=== PATIENT | female | born 1950 | race Caucasian/White ===

== ENCOUNTER 2017-10-26 14:27 | Emergency (ER) | payer MEDICARE ==
[2017-10-26] MEDS ORDERED: METHYLPREDNISOLONE PF 125MG/VIAL IVP ONE (15:06)
[2017-10-26] MEDS ORDERED: IPRATROPIUM/ALBUTEROL (0.5MG/3MG) NEB INH ONE (15:06)
--- NOTE | 2017-10-26 15:13 | Emergency Department Record ---
History of Present Illness - General Chief Complaint: Shortness of breath Stated Complaint: COPD EXACERBATION Time Seen by Provider: 10/26/17 14:57 Source: Patient, Family Mode of Arrival: Ambulatory Limitations: No limitations - History of Present Illness Initial Comments: 67 yo female presents with shortness of breath breath with a dry cough the last 4 days. She has a history of COPD. She is a former smoker who quite in 2007. She is on 3 liters home oxygen at baseline. She was seen at [facility] today. She was advised to go to [facility] ED. She elected to present to [facility]. No fevers. No chest pain. No edema. No CAD. She is not on steroids currently. PCP Masti. SEXTON Complaint: Shortness of breath -: Days(s) (4) Consistency: Constant Improves With: Bronchodilators Worsens With: Coughing, Exertion Known History Of: COPD Context: Other (COPD) - Related Data Home Medications Medication Instructions Recorded Confirmed Last Taken Albuterol Sulfate 0.083% [Neb] 3 ml NEB .EVERY 4-6 HOURS PRN 10/26/17 10/26/17 10/26/17 Albuterol Sulfate [Proair Hfa] 1 - 2 puff IH .EVERY 4-6 HOURS PRN 10/26/1710/2610/26/17 Aspirin [Aspir-Low] 81 mg PO DAILY 10/26/17 10/26/17 10/26/17 Buspirone HCl [Buspar] 15 mg PO DAILY 10/26/17 10/26/17 10/26/17 Cholecalciferol (Vitamin D3) 2,000 unit PO DAILY 10/26/17 10/26/17 10/26/17 [Vitamin D3] Citalopram Hydrobromide 40 mg PO DAILY 10/26/17 10/26/17 10/26/17 [Citalopram HBr] Fluticasone/Salmeterol [Advair 1 each IH ASDIR 10/26/17 10/26/17 10/26/17 500-50 Diskus] Furosemide [Lasix] 20 mg PO DAILY 10/26/17 10/26/17 10/26/17 Hydroxychloroquine Sulfate 200 mg PO DAILY 10/26/17 10/26/17 10/26/17 [Plaquenil] Omeprazole [Prilosec] 20 mg PO DAILY 10/26/17 10/26/17 10/26/17 Potassium Chloride [Klor-Con] 20 meq PO DAILY 10/26/17 10/26/17 10/26/17 Pyridoxine HCl (Vitamin B6) 100 mg PO DAILY 10/26/17 10/26/17 10/26/17 [Vitamin B-6] Verapamil HCl [Verapamil ER] 240 mg PO DAILY 10/26/17 10/26/17 10/26/17 Previous Rx's Medication Instructions Recorded Azithromycin [Zithromax] 250 mg PO DAILY #4 tablet 10/26/17 Prednisone [Prednisone 20Mg] 20 mg PO BID #10 tab 10/26/17 Allergies Allergy/AdvReac Type Severity Reaction Status Date / Time Penicillins Allergy HIVES Verified 10/26/17 15:11 Sulfa (Sulfonamide Allergy HIVES Verified 10/26/17 15:11 Antibiotics) Review of Systems Constitutional: Denies: Chills, Fever, Malaise, Weakness Eyes: Denies: Eye discharge, Eye pain, Photophobia ENT: Reports: Congestion. Denies: Throat pain Respiratory: Reports: Cough, Dyspnea, Wheezes Cardiovascular: Denies: Chest pain, Palpitations, Syncope Endocrine: Denies: Fatigue Gastrointestinal: Denies: Abdominal pain, Diarrhea, Nausea, Vomiting Genitourinary: Denies: Dysuria, Urgency Musculoskeletal: Denies: Arthralgia, Back pain, Myalgia, Neck pain Skin: Denies: Bruising, Change in color, Rash Neurological: Denies: Headache, Numbness, Weakness Psychiatric: Denies: Anxiety Hematological/Lymphatic: Denies: Blood Clots, Easy bleeding, Easy bruising, Swollen glands Physical Exam - General General Appearance: Alert, Oriented x3, Cooperative, No acute distress Limitations: No limitations - Head Head exam: Normal inspection - Eye Eye exam: Normal appearance. negative: Conjunctival injection - ENT ENT exam: Normal exam, Mucous membranes moist Ear exam: Normal external inspection Nasal Exam: Normal inspection Mouth exam: Normal external inspection - Neck Neck exam: Normal inspection, Full ROM. negative: Tenderness - Respiratory Respiratory exam: Decreased breath sounds, Prolonged expiratory, Wheezes. negative: Normal lung sounds bilaterally, Accessory muscle use, Rales, Respiratory distress, Rhonchi, Stridor - Cardiovascular Cardiovascular Exam: Regular rate, Normal rhythm, Normal heart sounds - GI/Abdominal GI/Abdominal exam: Soft. negative: Tenderness - Rectal Rectal exam: Deferred - exam: Deferred - Extremities Extremities exam: Normal inspection, Full ROM, Normal capillary refill. negative: Pedal edema, Tenderness - Back Back exam: Reports: Normal inspection, Full ROM. Denies: Muscle spasm, Rash noted, Tenderness - Neurological Neurological exam: Alert, Normal gait, Oriented X3 - Psychiatric Psychiatric exam: Normal affect, Normal mood. negative: Agitated, Anxious - Skin Skin exam: Dry, Intact, Normal color, Warm Course - Reevaluation(s) Reevaluation #1: 10/26/17 15:15 No prior visits on the EMR 10/26/17 15:49 EKG 15:33 NSR, rate 82, intervals Qtc 477, axis normal, poor R Wave progression , no acute changes.No old. 10/26/17 16:20 The labs were reviewed No acute changes on the CBC or CMP 10/26/17 16:30 The CXR was reviewed. It is consistent with emphysema. 10/26/17 16:32 The patient continues to do well On her baseline oxygen 3 liters she is 98% She is comfortable with DC home on Prednisone and Zithromax She is to increase the frequency of her nebulized treatments She will return if worse, fever, pain or any concerns Medical Decision Making - Lab Data Result diagrams: 10/26/17 15:21 10/26/17 15:21 Disposition Disposition: Discharge Clinical Impression: COPD exacerbation Disposition: Home, Self-Care Condition: (1) Good Instructions: COPD (Chronic Obstructive Pulmonary Disease) (ED) Additional Instructions: Call your doctor for close follow up of your COPD Take the steroids and antibiotics as directed Return or be seen if worse, pain, fever or concerns. Prescriptions: Azithromycin [Zithromax] 250 mg PO DAILY #4 tablet Prednisone [Prednisone 20Mg] 20 mg PO BID #10 tab Forms: Patient Portal Access Time of Disposition: 16:34 Quality - Quality Measures Quality Measures: N/A - Blood Pressure Screening Does Patient Have Any of the Following: No Blood Pressure Classification: Hypertensive Reading Systolic Measurement: 145 Diastolic Measurement: 78 Screening for High Blood Pressure: < Pre-Hypertensive BP, F/U Documented > [ G8950] Pre-Hypertensive Follow-up Interventions: Referral to alternative/primary care provider.
[2017-10-26 15:43] LABS: BASO % 0.5 % (0-6); EOS % 1.8 % (0-6); GRAN % 71.3 % (47-80); HEMATOCRIT 39.6 % (35.0-47.0); HEMOGLOBIN 13.1 gm/dl (11.6-16.0); LYMPH % 15.6 % (16-45); MEAN CELL VOLUME 103.4 fl (81-97); MEAN CORPUSCULAR HEMOGLOBIN 34.2 pg (27-33); MEAN CORPUSCULAR HGB CONC 33.1 g/dl (32-36); MEAN PLATELET VOLUME 9.8 fl (7.4-10.4); MONO % 10.8 % (0-9); PLATELET COUNT 294 K/uL (130-400); RED BLOOD COUNT 3.83 M/uL (3.80-5.40); RED CELL DISTRIBUTION WIDTH 13.1 % (11.5-14.5); WHITE BLOOD COUNT W/O DIFF 7.7 K/uL (4.2-12.2)
[2017-10-26] MEDS ORDERED: AZITHROMYCIN 500 MG TABLET PO ONE (15:48)
[2017-10-26 15:56] LABS: BLOOD UREA NITROGEN 12 mg/dL (8-23); CREATININE 0.7 mg/dL (0.5-0.9); EST GLOMERULAR FILTRATION RATE > 60 mL/min; INR 1.04; PARTIAL THROMBOPLASTIN TIME 26.2 SECONDS (24.5-39.1); PROTHROMBIN TIME (PATIENT) 11.2 SECONDS (9.5-12.1)
[2017-10-26 15:59] LABS: GLUCOSE,RANDOM 151 mg/dL (74-109)
--- NOTE | 2017-10-27 07:42 | RADIOLOGY REPORT ---
EXAM: CHEST, TWO VIEWS HISTORY: COPD, DIFFICULTY BREATHING. TECHNIQUE: Two views of the chest were obtained. Comparison: None. FINDINGS: The lungs are hyperinflated although are otherwise clear. Calcified granuloma right lower lobe measuring 1 cm. The cardiac silhouette is not enlarged. The diaphragm is flattened. The osseous structures are unremarkable. IMPRESSION: 1. EMPHYSEMA. NO ACUTE INTRATHORACIC PROCESS. 2. OLD GRANULOMATOUS DISEASE. JOB NUMBER: [id number] [facility]
== END 2017-10-26 16:46 | disposition home or self-care (01) ==
LOC: ER 14:27
DX: J44.1 Chronic obstructive pulmonary disease with (acute) exacerbation (principal); Z87.891 Personal history of nicotine dependence
CPT/HCPCS: 71020; 80048; 83880; 85025; 85610; 85730; 93005; 93010; 94640; 96374; 99284; J2930

== ENCOUNTER 2017-11-19 13:00 | Emergency (ER) | payer MEDICARE ==
--- NOTE | 2017-11-19 13:31 | Emergency Department Record ---
History of Present Illness - General Chief Complaint: Shortness of breath Stated Complaint: LUIS MANUEL Time Seen by Provider: 11/19/17 13:30 Source: Patient Mode of Arrival: Wheelchair Limitations: No limitations - History of Present Illness Initial Comments: The patient is here due to a 1-2 days hx of cough, congestion and LUIS MANUEL. She denies any fever, CP, back pain or vomiting. The patient has a hx of COPD and this feels just like one of her COPD exacerbations. She is on home O2. MD Complaint: Cough, Shortness of breath Onset/Timin -: Days(s) Consistency: Constant Improves With: Upright position Worsens With: Coughing, Exertion, Lying flat Known History Of: COPD Associated Symptoms: Cough - Related Data Home Oxygen Therapy: Yes Home Oxygen Amount: 3 Liters Home Medications Medication Instructions Recorded Confirmed Last Taken Ipratropium/Albuterol [Duoneb] 3 ml IH Q4H 11/19/17 11/19/17 11/19/17 08:00 Previous Rx's Medication Instructions Recorded Doxycycline Monohydrate [Mondoxyne 100 mg PO BID #14 capsule 11/19/17 Nl] Prednisone [Prednisone 20Mg] 40 mg PO DAILY #8 tab 11/19/17 Allergies Allergy/AdvReac Type Severity Reaction Status Date / Time Penicillins Allergy HIVES Verified 10/26/17 15:11 Sulfa (Sulfonamide Allergy HIVES Verified 10/26/17 15:11 Antibiotics) Travel Screening - Travel/Exposure Within Last 30 Days Have you traveled within the last 30 days?: No Review of Systems Constitutional: Reports: Malaise. Denies: Chills, Fever Eyes: Denies: Eye discharge ENT: Reports: Congestion Respiratory: Reports: Cough. Denies: Dyspnea Cardiovascular: Denies: Arrhythmia, Chest pain Past Medical History - SOCIAL HISTORY Smoking Status: Former smoker - RESPIRATORY Hx Respiratory Disorders: Yes Hx Bronchitis: Yes Hx COPD: Yes Hx Pneumonia: Yes - CARDIOVASCULAR Hx Cardio Disorders: Yes Hx CHF: Yes - NEURO Hx Neuro Disorders: No - GI Hx GI Disorders: No - Hx Genitourinary Disorders: No - ENDOCRINE Hx Endocrine Disorders: No - MUSCULOSKELETAL Hx Musculoskeletal Disorders: Yes Hx Arthritis: Yes (Rheumatiod) - PSYCH Hx Psych Problems: Yes Hx Anxiety: Yes - HEMATOLOGY/ONCOLOGY Hx Hematology/Oncology Disorders: No Family Medical History Any Significant Family History?: No Physical Exam - General General Appearance: Alert, Oriented x3, Cooperative, No acute distress - Head Head exam: Atraumatic, Normocephalic, Normal inspection - Eye Eye exam: Normal appearance, PERRL - ENT Throat exam: Normal inspection. negative: Tonsillar erythema, Tonsillar exudate - Neck Neck exam: Normal inspection, Full ROM. negative: Tenderness - Respiratory Respiratory exam: Decreased breath sounds (at the bases.). negative: Normal lung sounds bilaterally, Accessory muscle use (The patient is speaking in full sentences with no difficulty.), Rales, Respiratory distress, Rhonchi, Stridor - Cardiovascular Cardiovascular Exam: Regular rate, Normal rhythm, Normal heart sounds - GI/Abdominal GI/Abdominal exam: Soft, Normal bowel sounds. negative: Tenderness - Extremities Extremities exam: Normal inspection, Full ROM, Normal capillary refill. negative: Tenderness - Neurological Neurological exam: Alert. negative: Motor sensory deficit Course Vital Signs 11/19/17 13:21 Temperature 99.1 F Pulse Rate 72 Respiratory 22 Rate Blood Pressure 117/84 Pulse Ox 97 - Reevaluation(s) Reevaluation #1: The patient is doing very well at this time. She states her breathing is back to normal and she feels MUCH better. On exam her lungs have much better aeration and are without any wheezing. 11/19/17 15:22 Medical Decision Making - Data Complexity MDM Data: Labs Ordered and/or Reviewed, X-Ray Ordered and/or Reviewed - Lab Data Result diagrams: 11/19/17 13:40 11/19/17 13:40 - Radiology Data Radiology results: Report reviewed (CXR: COPD, no acute changes.) Disposition Disposition: Discharge Clinical Impression: COPD exacerbation Disposition: Home, Self-Care Condition: (2) Stable Instructions: Dyspnea (ED) Additional Instructions: Please continue your regular medicines and take the Doxycycline and Prednisone as directed. Please see your PCP later this week for recheck. Return to the ER for any worsening symptoms. Prescriptions: Doxycycline Monohydrate [Mondoxyne Nl] 100 mg PO BID #14 capsule Prednisone [Prednisone 20Mg] 40 mg PO DAILY #8 tab Forms: Patient Portal Access Time of Disposition: 15:20 Quality - Quality Measures Quality Measures: N/A - Blood Pressure Screening View Details: Yes Does Patient Have Any of the Following: No Blood Pressure Classification: Pre-Hypertensive BP Reading Systolic Measurement: 122 Diastolic Measurement: 73 Screening for High Blood Pressure: < Pre-Hypertensive BP, F/U Documented > [ G8950] Pre-Hypertensive Follow-up Interventions: Referral to alternative/primary care provider.
[2017-11-19] MEDS ORDERED: IPRATROPIUM/ALBUTEROL (0.5MG/3MG) NEB INH ONE (13:33)
[2017-11-19] MEDS ORDERED: METHYLPREDNISOLONE PF 125MG/VIAL IVP ONE (13:33)
[2017-11-19 13:56] LABS: HEMATOCRIT 40.8 % (35.0-47.0); HEMOGLOBIN 13.4 gm/dl (11.6-16.0); MEAN CORPUSCULAR HEMOGLOBIN 33.8 pg (27-33); MEAN CORPUSCULAR HGB CONC 32.8 g/dl (32-36); MEAN PLATELET VOLUME 9.4 fl (7.4-10.4); PLATELET COUNT 298 K/uL (130-400); RED BLOOD COUNT 3.96 M/uL (3.80-5.40); RED CELL DISTRIBUTION WIDTH 12.7 % (11.5-14.5); WHITE BLOOD COUNT W/O DIFF 13.7 K/uL (4.2-12.2)
[2017-11-19 14:07] LABS: PLATELET ESTIMATE NORMAL (NORMAL)
[2017-11-19 14:09] LABS: BLOOD UREA NITROGEN 12 mg/dL (8-23); CREATININE 0.7 mg/dL (0.5-0.9); EST GLOMERULAR FILTRATION RATE > 60 mL/min
[2017-11-19 14:10] LABS: INFLUENZA A NEGATIVE (NEGATIVE); INFLUENZA B NEGATIVE (NEGATIVE)
[2017-11-19 14:12] LABS: GLUCOSE,RANDOM 127 mg/dL (74-109)
--- NOTE | 2017-11-20 09:06 | RADIOLOGY REPORT ---
EXAM: CHEST, TWO VIEWS HISTORY: VERY SHORT OF BREATH FOR ONE DAY. COPD HISTORY. TECHNIQUE: Upright PA and lateral views of the chest were obtained. Comparison: Two view chest radiographic examination dated 10/26/17. FINDINGS: The heart remains normal in size and the pulmonary vasculature is nondilated. The lungs are hyperinflated consistent with COPD. A calcified granuloma is again noted within the posterior right mid lung. Minor linear scarring versus atelectasis within the left lung base. Minor biapical pleural and parenchymal scarring. No new lung consolidation, costophrenic angle blunting or pneumothorax. IMPRESSION: 1. NO EVIDENCE OF ACUTE CARDIOPULMONARY DISEASE WITHOUT CHANGE IN APPEARANCE OF THE CHEST SINCE 10/26/17. 2. HYPERINFLATION OF THE LUNGS CONSISTENT WITH COPD. 3. MINOR LINEAR SCARRING VERSUS ATELECTASIS IN THE LATERAL LEFT LUNG BASE. BIAPICAL LUNG SCARRING. 4. HEALED GRANULOMATOUS DISEASE IN THE POSTERIOR RIGHT MID LUNG. JOB NUMBER: [id number] [facility]TD[facility]
== END 2017-11-19 15:32 | disposition home or self-care (01) ==
LOC: ER 13:00
DX: J06.9 Acute upper respiratory infection, unspecified (principal); R05 Cough; E11.9 Type 2 diabetes mellitus without complications; Z79.4 Long term (current) use of insulin
CPT/HCPCS: 71046; 80048; 85027; 87400; 94640; 99283; 99284; J2930

== ENCOUNTER 2017-11-26 10:04 | Emergency (ER) | payer MEDICARE ==
[2017-11-26] MEDS ORDERED: METHYLPREDNISOLONE PF 125MG/VIAL IVP ONE (10:16)
[2017-11-26] MEDS ORDERED: IPRATROPIUM/ALBUTEROL (0.5MG/3MG) NEB INH ONE ×2 (10:16→10:17)
--- NOTE | 2017-11-26 10:26 | Emergency Department Record ---
History of Present Illness - General Chief Complaint: Shortness of breath Stated Complaint: LUIS MANUEL Time Seen by Provider: 11/26/17 10:16 Source: Patient, RN notes reviewed Mode of Arrival: Ambulatory - History of Present Illness Initial Comments: sob and cough not getting better and she was seen her 11/19/2017 and finished her prednisone couple days ago. PMH copd and use home oxygen 3 liters per minute and she stopped smoking 2007 Consistency: Constant Improves With: Nothing Worsens With: Nothing Known History Of: COPD Associated Symptoms: Cough Treatments Prior to Arrival: Bronchodilator, Oxygen - Related Data Home Oxygen Therapy: Yes Home Oxygen Amount: 3 Liters Previous Rx's Medication Instructions Recorded Doxycycline Hyclate [Doxycycline] 100 mg PO BID #20 tab 11/26/17 Prednisone [Prednisone 10Mg] 10 mg PO ASDIR #30 tab 11/26/17 Allergies Allergy/AdvReac Type Severity Reaction Status Date / Time levofloxacin [From Levaquin] Allergy HIVES Verified 11/26/17 10:13 Penicillins Allergy HIVES Verified 10/26/17 15:11 Sulfa (Sulfonamide Allergy HIVES Verified 10/26/17 15:11 Antibiotics) Travel Screening - Travel/Exposure Within Last 30 Days Have you traveled within the last 30 days?: No Review of Systems Reviewed: No additional complaints except as noted below Constitutional: Reports: As per HPI. Denies: Chills, Fever, Malaise, Night sweats, Weakness, Weight change Eyes: Reports: As per HPI. Denies: Eye discharge, Eye pain, Photophobia, Vision change ENT: Reports: As per HPI, Congestion. Denies: Dental pain, Ear pain, Epistaxis , Hearing loss, Throat pain Respiratory: Reports: As per HPI, Cough, Dyspnea. Denies: Hemoptysis, Stridor, Wheezes Cardiovascular: Reports: As per HPI. Denies: Arrhythmia, Chest pain, Dyspnea on exertion, Edema, Murmurs, Orthopnea, Palpitations, Paroxysmal nocturnal dyspnea, Rheumatic Fever, Syncope Endocrine: Reports: As per HPI. Denies: Fatigue, Heat or cold intolerance, Polydipsia, Polyuria Gastrointestinal: Reports: As per HPI. Denies: Abdominal pain, Constipation, Diarrhea, Hematemesis, Hematochezia, Melena, Nausea, Vomiting Genitourinary: Reports: As per HPI. Denies: Abnormal menses, Discharge, Dyspareunia, Dysuria, Frequency, Hematuria, Incontinence, Retention, Urgency Musculoskeletal: Reports: As per HPI. Denies: Arthralgia, Back pain, Gout, Joint swelling, Myalgia, Neck pain Skin: Reports: As per HPI. Denies: Bruising, Change in color, Change in hair/ nails, Lesions, Pruritus, Rash Neurological: Reports: As per HPI. Denies: Abnormal gait, Confusion, Headache, Numbness, Paresthesias, Seizure, Tingling, Tremors, Vertigo, Weakness Psychiatric: Reports: As per HPI. Denies: Anxiety, Auditory hallucinations, Depression, Homicidal thoughts, Suicidal thoughts, Visual hallucinations Hematological/Lymphatic: Reports: As per HPI. Denies: Anemia, Blood Clots, Easy bleeding, Easy bruising, Swollen glands Past Medical History - SOCIAL HISTORY Smoking Status: Former smoker Alcohol Use: None Drug Use: None - RESPIRATORY Hx Respiratory Disorders: Yes Hx Bronchitis: Yes Hx COPD: Yes Hx Pneumonia: Yes - CARDIOVASCULAR Hx Cardio Disorders: Yes Hx CHF: Yes - NEURO Hx Neuro Disorders: No - GI Hx GI Disorders: No - Hx Genitourinary Disorders: No - ENDOCRINE Hx Endocrine Disorders: No - MUSCULOSKELETAL Hx Musculoskeletal Disorders: Yes Hx Arthritis: Yes (Rheumatiod) - PSYCH Hx Psych Problems: Yes Hx Anxiety: Yes - HEMATOLOGY/ONCOLOGY Hx Hematology/Oncology Disorders: No Family Medical History Any Significant Family History?: No Physical Exam - General General Appearance: Alert, Oriented x3, Cooperative, Mild distress - Head Head exam: Normal inspection - Eye Eye exam: Normal appearance, PERRL Pupils: Normal accommodation - ENT ENT exam: Normal exam, Mucous membranes moist, Normal external ear exam, Normal orophraynx, TM's normal bilaterally Ear exam: Normal external inspection. negative: External canal tenderness Nasal Exam: Normal inspection. negative: Discharge, Sinus tenderness Mouth exam: Normal external inspection, Tongue normal Teeth exam: Normal inspection. negative: Dental caries Throat exam: Normal inspection. negative: Tonsillar erythema, Tonsillar exudate - Neck Neck exam: Normal inspection, Full ROM. negative: Tenderness - Respiratory Respiratory exam: Decreased breath sounds, Wheezes. negative: Respiratory distress - Cardiovascular Cardiovascular Exam: Regular rate, Normal rhythm, Normal heart sounds - GI/Abdominal GI/Abdominal exam: Soft, Normal bowel sounds. negative: Tenderness - Rectal Rectal exam: Deferred - exam: Deferred - Extremities Extremities exam: Normal inspection, Full ROM, Normal capillary refill. negative: Tenderness - Back Back exam: Reports: Normal inspection, Full ROM. Denies: Muscle spasm, Rash noted, Tenderness - Neurological Neurological exam: Alert, Normal gait, Oriented X3, Reflexes normal - Psychiatric Psychiatric exam: Normal affect, Normal mood - Skin Skin exam: Dry, Intact, Normal color, Warm Course Vital Signs 11/26/17 11/26/17 10:07 10:22 Temperature 97.7 F Pulse Rate 81 83 Respiratory 18 19 Rate Blood Pressure 128/89 Pulse Ox 97 97 - Reevaluation(s) Reevaluation #1: patient is feeling better and back to her baseline on oxygen 11/26/17 11:09 Medical Decision Making - Data Complexity MDM Data: Labs Ordered and/or Reviewed, X-Ray Ordered and/or Reviewed (stable chest) - Lab Data Result diagrams: 11/26/17 10:26 11/26/17 10:26 Disposition Clinical Impression: COPD (chronic obstructive pulmonary disease) with acute bronchitis, Bronchitis Disposition: Home, Self-Care Condition: (2) Stable Instructions: Dyspnea (ED), COPD (Chronic Obstructive Pulmonary Disease) (ED) Additional Instructions: follow up with family in one week and or pulmonary DRPernell out of [place] Prescriptions: Doxycycline Hyclate [Doxycycline] 100 mg PO BID #20 tab Prednisone [Prednisone 10Mg] 10 mg PO ASDIR #30 tab Forms: Patient Portal Access Quality - Quality Measures Quality Measures: N/A - Blood Pressure Screening Does Patient Have Any of the Following: No Blood Pressure Classification: Pre-Hypertensive BP Reading Systolic Measurement: 128 Diastolic Measurement: 89 Screening for High Blood Pressure: < Pre-Hypertensive BP, F/U Documented > [ G8950] Pre-Hypertensive Follow-up Interventions: Referral to alternative/primary care provider.
[2017-11-26 10:46] LABS: HEMATOCRIT 39.3 % (35.0-47.0); HEMOGLOBIN 13.3 gm/dl (11.6-16.0); MEAN CELL VOLUME 100.8 fl (81-97); MEAN CORPUSCULAR HEMOGLOBIN 34.1 pg (27-33); MEAN CORPUSCULAR HGB CONC 33.8 g/dl (32-36); MEAN PLATELET VOLUME 9.5 fl (7.4-10.4); PLATELET COUNT 337 K/uL (130-400); RED CELL DISTRIBUTION WIDTH 12.4 % (11.5-14.5); WHITE BLOOD COUNT W/O DIFF 11.9 K/uL (4.2-12.2)
[2017-11-26 10:57] LABS: BLOOD UREA NITROGEN 15 mg/dL (8-23); CREATININE 0.6 mg/dL (0.5-0.9); EST GLOMERULAR FILTRATION RATE > 60 mL/min
[2017-11-26 10:59] LABS: INFLUENZA A NEGATIVE (NEGATIVE); INFLUENZA B NEGATIVE (NEGATIVE)
[2017-11-26 11:00] LABS: GLUCOSE,RANDOM 92 mg/dL (74-109)
--- NOTE | 2017-11-26 13:34 | RADIOLOGY REPORT ---
DATE: 11/26/2017. EXAM: CHEST, TWO VIEWS. COMPARISON: 11/19/2017. HISTORY: Chest congestion and dyspnea for three weeks. Chronic obstructive pulmonary disease. TECHNIQUE: Two views of the chest were obtained. FINDINGS: Cardiomediastinal silhouette is stable. Lungs and pleural spaces are clear. Calcified granuloma noted within the right lower lobe. There does appear to be mild hyperaeration consistent with the patient's reported history of chronic obstructive pulmonary disease. IMPRESSION: STABLE CHEST. CHRONIC OBSTRUCTIVE PULMONARY DISEASE. SEQUELA OF PRIOR GRANULOMATOUS DISEASE. JOB NUMBER: [id number] [facility]TDD
== END 2017-11-26 11:29 | disposition home or self-care (01) ==
LOC: ER 10:04
DX: J44.9 Chronic obstructive pulmonary disease, unspecified (principal); J20.9 Acute bronchitis, unspecified; R06.02 Shortness of breath; I50.9 Heart failure, unspecified; Z99.81 Dependence on supplemental oxygen; Z87.891 Personal history of nicotine dependence
CPT/HCPCS: 71046; 80048; 85027; 87400; 94640; 96374; 99284; J2930

== ENCOUNTER 2017-12-14 09:42 | Emergency (ER) | payer MEDICARE ==
--- NOTE | 2017-12-14 10:06 | Emergency Department Record ---
History of Present Illness - General Chief Complaint: Shortness of breath Stated Complaint: SHORTNESS OF BREATH Time Seen by Provider: 12/14/17 09:53 Source: Patient Mode of Arrival: Ambulatory Limitations: No limitations - History of Present Illness Initial Comments: The patient is here due to a 2-3 week hx of cough, colored sputum production, congestion, and SOB. She denies any fever, CP, back pain or MCPHERSON. The patient has an extensive hx of COPD and is on home O2 at 2-3 liters. She has been seen in the ER multiple times for this with the last visit 2.5 weeks ago when she was placed on oral steroids and Doxycycline. Since that visit she has seen Dr. Louis and her pulmonary doctor who did continue her oral steroids. The patient states she has been off the steroids for 4 days. MD Complaint: Cough, Shortness of breath Onset/Timin -: Week(s) Improves With: Nothing Worsens With: Nothing Known History Of: COPD Associated Symptoms: Cough, Sputum production Treatments Prior to Arrival: Bronchodilator, Other - Related Data Home Medications Medication Instructions Recorded Confirmed Last Taken Tiotropium [place] [Spiriva] 18 mcg IH ASDIR 12/14/17 12/14/17 12/14/17 Previous Rx's Medication Instructions Recorded Cefdinir [Omnicef] 300 mg PO BID #20 cap 12/14/17 Prednisone [Prednisone 20Mg] 20 mg PO ASDIR #15 tab 12/14/17 Allergies Allergy/AdvReac Type Severity Reaction Status Date / Time levofloxacin [From Levaquin] Allergy HIVES Verified 12/14/17 09:56 Penicillins Allergy HIVES Verified 12/14/17 09:56 Sulfa (Sulfonamide Allergy HIVES Verified 12/14/17 09:56 Antibiotics) Travel Screening - Travel/Exposure Within Last 30 Days Have you traveled within the last 30 days?: No - Travel/Exposure Within Last Year Have you traveled outside the [place] in the last year?: No - Additonal Travel Details Have you been exposed to anyone with a communicable illness?: No - Travel Symptoms Symptom Screening: None Review of Systems Constitutional: Denies: Chills, Fever Eyes: Denies: Eye discharge ENT: Reports: Congestion Respiratory: Reports: Cough, Dyspnea. Denies: Hemoptysis, Wheezes Cardiovascular: Denies: Arrhythmia, Chest pain Past Medical History - SOCIAL HISTORY Smoking Status: Former smoker - RESPIRATORY Hx Respiratory Disorders: Yes Hx Bronchitis: Yes Hx COPD: Yes Hx Pneumonia: Yes - CARDIOVASCULAR Hx Cardio Disorders: Yes Hx CHF: Yes - NEURO Hx Neuro Disorders: No - GI Hx GI Disorders: No - Hx Genitourinary Disorders: No - ENDOCRINE Hx Endocrine Disorders: No - MUSCULOSKELETAL Hx Musculoskeletal Disorders: Yes Hx Arthritis: Yes (Rheumatiod) - PSYCH Hx Psych Problems: Yes Hx Anxiety: Yes - HEMATOLOGY/ONCOLOGY Hx Hematology/Oncology Disorders: No Family Medical History Any Significant Family History?: No Physical Exam - General General Appearance: Alert, Oriented x3, Cooperative, No acute distress - Head Head exam: Atraumatic, Normocephalic, Normal inspection - Eye Eye exam: Normal appearance, PERRL - ENT ENT exam: Normal exam, Mucous membranes moist, Normal external ear exam, Normal orophraynx, TM's normal bilaterally Throat exam: Normal inspection. negative: Tonsillar erythema, Tonsillar exudate - Neck Neck exam: Normal inspection, Full ROM. negative: Lymphadenopathy, Tenderness - Respiratory Respiratory exam: Decreased breath sounds. negative: Normal lung sounds bilaterally, Stridor, Wheezes - Cardiovascular Cardiovascular Exam: Regular rate, Normal rhythm, Normal heart sounds - GI/Abdominal GI/Abdominal exam: Soft, Normal bowel sounds. negative: Tenderness - Extremities Extremities exam: Normal inspection, Full ROM, Normal capillary refill. negative: Tenderness Course Vital Signs 12/14/17 09:44 Temperature 98.0 F Pulse Rate 129 H Respiratory 24 Rate Blood Pressure 132/96 Pulse Ox 96 - Reevaluation(s) Reevaluation #1: The patient is doing better. Her lungs have improved aeration with no wheezing. Her HR is still mildly elevated so we will order a CT study to be sure she does not have a PE. 12/14/17 12:30 Reevaluation #2: The patient is doing better at this time. Her HR is improving and she is breathing better. I believer her HR is a little fast due to the frequent breathing tx's and the fact she did not take her medicines today. I did discus the CT results with her and the need for F/U. 12/14/17 13:58 12/14/17 15:03 Medical Decision Making - Data Complexity MDM Data: Labs Ordered and/or Reviewed, X-Ray Ordered and/or Reviewed - Lab Data Result diagrams: 12/14/17 10:05 12/14/17 10:05 - Radiology Data Radiology results: Report reviewed (CXR; COPD, calcified granuloma RLL. Chest CT: No PE, granuloma sup segement RLL. Rec F/U.) Disposition Disposition: Discharge Clinical Impression: COPD (chronic obstructive pulmonary disease) with acute bronchitis Disposition: Home, Self-Care Condition: (2) Stable Instructions: Dyspnea (ED) Additional Instructions: Please continue your regular medicines and continue the Prednisone and Cefdinir. Please see your PCP or Lung doctor next week and also see your PCP to get a repeat CT scan ordered in 3-6 months. Return to the ER for any worsening symptoms of cough, trouble breathing or any fever. Prescriptions: Cefdinir [Omnicef] 300 mg PO BID #20 cap Prednisone [Prednisone 20Mg] 20 mg PO ASDIR #15 tab Forms: Patient Portal Access Time of Disposition: 14:00 Quality - Quality Measures Quality Measures: N/A - Blood Pressure Screening View Details: Yes Does Patient Have Any of the Following: No Blood Pressure Classification: Hypertensive Reading Systolic Measurement: 142 Diastolic Measurement: 74 Screening for High Blood Pressure: < Pre-Hypertensive BP, F/U Documented > [ [id number]] Pre-Hypertensive Follow-up Interventions: Referral to alternative/primary care provider.
[2017-12-14] MEDS: METHYLPREDNISOLONE PF 125MG/VIAL IVP ONE (10:08)
[2017-12-14] MEDS: IPRATROPIUM/ALBUTEROL (0.5MG/3MG) NEB INH ONE (10:08)
[2017-12-14 10:21] LABS: HEMATOCRIT 41.4 % (35.0-47.0); MEAN CORPUSCULAR HEMOGLOBIN 33.8 pg (27-33); MEAN CORPUSCULAR HGB CONC 33.8 g/dl (32-36); MEAN PLATELET VOLUME 9.2 fl (7.4-10.4); PLATELET COUNT 318 K/uL (130-400); RED BLOOD COUNT 4.14 M/uL (3.80-5.40); RED CELL DISTRIBUTION WIDTH 11.8 % (11.5-14.5); WHITE BLOOD COUNT W/O DIFF 14.4 K/uL (4.2-12.2)
[2017-12-14 10:30] LABS: PLATELET ESTIMATE NORMAL (NORMAL)
[2017-12-14 10:31] LABS: BLOOD UREA NITROGEN 15 mg/dL (8-23); CREATININE 0.6 mg/dL (0.5-0.9); EST GLOMERULAR FILTRATION RATE > 60 mL/min
[2017-12-14 10:32] LABS: TOTAL PROTEIN 7.3 g/dL (6.6-8.7)
[2017-12-14 10:34] LABS: GLUCOSE,RANDOM 103 mg/dL (74-109)
[2017-12-14 10:36] LABS: ALT/SGPT 34 U/L (<33); AST/SGOT 22 U/L (10.0-35.0)
[2017-12-14 10:37] LABS: ALB/GLOB RATIO 1.6 (1.1-1.8); ALBUMIN 4.5 g/dL (4.0-5.0); ALKALINE PHOSPHATASE 90 U/L (35-104)
[2017-12-14] MEDS: ALBUTEROL SULFATE (0.083%) 2.5 MG/3 ML NEB INH ONE ×2 (11:43)
[2017-12-14] MEDS: CEFTRIAXONE SODIUM 1 GM in 0.9 % SODIUM CHLORIDE 100ML 100 ML IVPB ONE (11:52)
[2017-12-14] MEDS: 0.9 % SODIUM CHLORIDE 1,000 ML BAG IV ONE (12:41)
--- NOTE | 2017-12-15 09:19 | RADIOLOGY REPORT ---
EXAM: CHEST, TWO VIEWS HISTORY: COUGH, HISTORY OF COPD. TECHNIQUE: PA and lateral views of the chest were obtained. Comparison: Two view chest 11/26/17. FINDINGS: Stable heart size, within normal limits. Calcified granuloma superior segment right lower lobe as before. The lungs again appear somewhat hyperinflated suggesting underlying COPD. No definite acute infiltrate seen and no pleural effusion or pneumothorax evident. IMPRESSION: 1. HYPERINFLATION SUGGESTING COPD. 2. CALCIFIED GRANULOMA SUPERIOR SEGMENT RIGHT LOWER LOBE. JOB NUMBER: [id number] [facility]
--- NOTE | 2017-12-15 09:42 | CT ANGIOGRAM REPORT ---
EXAM: CTA OF THE CHEST WITH CONTRAST WITH POST PROCESSING HISTORY: DIFFICULTY IN BREATHING, VERY SHORT OF BREATH, EXACERBATED COPD. TECHNIQUE: CTA of the chest was performed following the intravenous administration of 70 ml of Omnipaque 350 as the IV contrast. Post processing on an independent workstation was performed with multiple 3D MIP series obtained. Comparison: No prior chest CT. Comparison is made with the two view chest x- ray from today 12/14/17. FINDINGS: No definite PE identified. Some ectasia of the ascending aorta to a diameter of about 3.5 cm, however, no thoracic aortic aneurysm or dissection is seen. No pleural or pericardial effusion evident. There are multiple thyroid nodules partially seen with the entire thyroid not included on this chest CTA. The largest such nodule visualized is in the left lobe and measures at least 10.7 mm in size. Correlation with physical exam suggested and follow-up nonemergent thyroid ultrasound might be useful. No hilar or mediastinal adenopathy seen. There is diffuse fatty infiltration of the visualized liver. There is right apical pleural thickening. Tiny bullae throughout the lungs consistent with centrilobular emphysema. Large dense calcified granuloma superior segment right lower lobe approximately 12 mm in size with calcified right hilar and mediastinal lymph nodes all consistent with old granulomatous disease. There is an approximately 5.6 mm nodule in the superior segment of the left lower lobe. This is nonspecific and a follow-up chest CT in six months time is suggested to reassess. This was seen on image 44 of 127. Hypertrophic spurring in the spine with slightly exaggerated kyphosis. There is also mild lumbar curve convexed to the left. Motion artifact in the lung bases. In addition to the tiny bullae throughout the lungs mentioned above, there are some larger bullae in the right middle lobe also likely a manifestation of emphysema. IMPRESSION: 1. NO DEFINITE PE IDENTIFIED. 2. LARGE CALCIFIED GRANULOMA SUPERIOR SEGMENT RIGHT LOWER LOBE WITH CALCIFIED RIGHT HILAR AND MEDIASTINAL NODES CONSISTENT WITH OLD GRANULOMATOUS DISEASE. 3. INDETERMINATE 5.6 MM NODULE SUPERIOR SEGMENT LEFT LOWER LOBE. FOLLOW-UP CHEST CT IN SIX MONTHS TIME SUGGESTED. 4. MULTIPLE THYROID NODULES, THE LARGEST AT LEAST 10.7 MM IN SIZE. FOLLOW-UP THYROID ULTRASOUND MAY BE USEFUL DESCRIBED ABOVE. 5. ASYMMETRIC RIGHT APICAL PLEURAL THICKENING. 6. DIFFUSE FATTY INFILTRATION OF THE LIVER. JOB NUMBER: [id number] AND [id number] [facility]
== END 2017-12-14 14:11 | disposition home or self-care (01) ==
LOC: ER 09:42
DX: J44.0 Chronic obstructive pulmonary disease with (acute) lower respiratory infection (principal); J20.9 Acute bronchitis, unspecified; R06.02 Shortness of breath; R00.0 Tachycardia, unspecified; I50.9 Heart failure, unspecified; Z99.81 Dependence on supplemental oxygen; Z87.891 Personal history of nicotine dependence
CPT/HCPCS: 71046; 71275; 80053; 85027; 86140; 94640; 96365; 96375; 99284; J2930; J7030; J7613